=== PATIENT | female | born 1980 | race Two or more races ===

== ENCOUNTER 2016-09-22 02:32 | Emergency (ER) | payer MEDICAID ==
[~2016-09-22] VITALS: Ht 157.5 cm; Wt 84.5 kg
[2016-09-22 02:56] LABS: Basophils # (auto) 0 uL; Basophils % (auto) 0.2 % (0.0-2.0); DEFINITIVE VIEW TRANSMISSION; Eosinophils # (auto) 0.1 uL; Eosinophils % (auto) 0.8 % (0.0-7.0); Hematocrit 40.4 % (36.0-46.0); Hemoglobin 13.4 g/dL (12.2-16.2); Lymphocytes # (auto) 1.1 uL; Lymphocytes % (auto) 10.8 % (10.0-50.0); Mean Corpuscular Hemoglobin 26.9 pg (28.0-32.0); Mean Corpuscular Volume 81.4 fL (80.0-100.0); Mean Platelet Volume 8.9 fL (7.4-10.4); Monocytes # (auto) 0 uL; Monocytes % (auto) 0.3 % (0.0-12.0); Neutrophils # (auto) 9.2 uL; Neutrophils % (auto) 87.9 % (37.0-80.0); Platelet Count (auto) 283 10^3/uL (140-450); White Blood Cell 10.4 10^3/uL (4.4-10.8)
[2016-09-22 03:41] LABS: Albumin 3.3 g/dL (3.4-5.0); BUN/Creatinine Ratio 11.9; Calcium 8.6 mg/dL (8.5-10.1); Potassium 3.7 mmol/L (3.5-5.1)
[2016-09-22 03:47] LABS: Bilirubin, Total 0.3 mg/dL (0.2-1.0); Total Protein 7.3 g/dL (6.4-8.2)
[2016-09-22 04:41] LABS: Urine Bilirubin Negative (Negative); Urine Blood Negative /uL (Negative); Urine Color Yellow (Yellow); Urine Glucose Normal (Normal); Urine Ketone Negative (Negative); Urine Mucus FEW (None Seen); Urine Nitrite Negative (Negative); Urine RBC 2 /hpf (0 - 4); Urine Squamous Epithelial Cell FEW /hpf (<5); Urine Urobilinogen Normal (Negative); Urine pH 5.5 (5.0-8.0)
[2016-09-22] MEDS ORDERED: SODIUM CHLORIDE 0.9% 1,000 ML IV ONE (06:38)
[2016-09-22 08:55] VITALS: BP 110/61
== END 2016-09-22 09:43 | disposition home or self-care (01) ==
LOC: ER 02:34
DX: K29.70 Gastritis, unspecified, without bleeding (principal); J40 Bronchitis, not specified as acute or chronic
CPT/HCPCS: 36415; 74176; 80053; 81001; 82150; 83690; 84702; 85025; 96360; 99285; J7030

== ENCOUNTER 2017-08-03 09:19 | Emergency (ER) | payer MEDICAID ==
[~2017-08-03] VITALS: Ht 157.5 cm; Wt 84.8 kg
[2017-08-03 09:26] VITALS: BP 123/75
== END 2017-08-03 11:24 | disposition home or self-care (01) ==
LOC: ER 09:19
DX: F41.9 Anxiety disorder, unspecified (principal); R12 Heartburn
CPT/HCPCS: 36415; 71046; 84484; 93005

== ENCOUNTER 2017-08-25 22:48 | Emergency (ER) | payer MEDICAID ==
[~2017-08-25] VITALS: Ht 157.5 cm; Wt 84.4 kg
[2017-08-25 22:57] VITALS: BP 123/81
[2017-08-26] MEDS ORDERED: HYDROcodone-ACET 7.5/325MG TAB PO ONE (01:15)
[2017-08-26] MEDS ORDERED: cefTRIAXone SOD 1,000 MG VL IM ONE (01:15)
[2017-08-26] MEDS ORDERED: ACETAMINOPHEN/CODEINE#3 (300/30mg) TAB PO ONE ×2 (01:15→01:30)
[2017-08-26] MEDS ORDERED: IBUPROFEN 800 MG TAB PO ONE ×2 (01:15→01:30)
[2017-08-26] MEDS ORDERED: AZITHROMYCIN 250 MG TAB PO ONE (01:15)
[2017-08-26 01:35] LABS: Urine Bacteria FEW /hpf (None Seen); Urine Blood Negative /uL (Negative); Urine Mucus FEW (None Seen); Urine Specific Gravity 1.014 (1.001-1.035); Urine WBC 4 /hpf (0 - 5)
== END 2017-08-26 01:45 | disposition home or self-care (01) ==
LOC: ER 22:50
DX: N73.9 Female pelvic inflammatory disease, unspecified (principal)
CPT/HCPCS: 81001; 96372; 99284; J0696